=== PATIENT | female | born 1945 | race Caucasian/White ===

== ENCOUNTER 2022-01-01 14:34 | Inpatient (IN) | payer MEDICARE, OTHER ==
[~2022-01-01] VITALS: Ht 157.5 cm; Wt 80.0 kg
[~2022-01-01 14:34] MED LIST: DOCU100C40 PO; HYDR25SU33 RC; HYDR30CR79 RC; LEVO75TA57 PO; LISI-232 PO; METH500T PO; PRAV10TA38 PO
[2022-01-01 15:17] LABS: BASOPHILS % (AUTO) 0.2 % (0-1); EOSINOPHILS # (AUTO) 0.1 X10'3 (0-0.9); EOSINOPHILS % (AUTO) 1.4 % (0-6); HEMATOCRIT 39.3 % (35.0-45.0); HEMOGLOBIN 13.3 g/dl (12.0-16.0); LYMPHOCYTES # (AUTO) 2.1 X10'3 (1.1-4.8); LYMPHOCYTES % (AUTO) 29.5 % (21-51); MEAN CORPUSCULAR HEMOGLOBIN 28.9 PG (27.0-31.0); MEAN CORPUSCULAR HGB CONC 33.8 g/dL (33.0-36.5); MEAN CORPUSCULAR VOLUME 85.6 FL (78-98); MEAN PLATELET VOLUME 7.9 FL (7.4-10.4); MONOCYTES # (AUTO) 0.6 X10'3 (0-0.9); MONOCYTES % (AUTO) 8.3 % (2-12); NEUTROPHILS # (AUTO) 4.3 X10'3 (1.8-7.7); NEUTROPHILS % (AUTO) 60.6 % (42-75); PLATELET COUNT 257 X10'3 (140-440); RED BLOOD COUNT 4.59 X10'6 (4.20-5.60); RED CELL DISTRIBUTION WIDTH 13.4 % (11.5-14.5); WHITE BLOOD COUNT 7.1 X10'3 (4.5-11.0)
[2022-01-01 15:25] LABS: APTT 24 SECONDS (22-32)
[2022-01-01 15:27] LABS: ALANINE AMINOTRANSFERASE 23 U/L (12-78); ALBUMIN 3.4 G/DL (3.4-5.0); ALBUMIN/GLOBULIN RATIO 0.9 (1.1-1.5); ALKALINE PHOSPHATASE 84 IU/L (46-116); ANION GAP 8 (8-16); ASPARTATE AMINO TRANSFERASE 11 U/L (10-37); BILIRUBIN,TOTAL 0.4 MG/DL (0.1-1.0); BLOOD UREA NITROGEN 21 MG/DL (7-18); BUN/CREATININE RATIO 18.3 (6.6-38.0); CALCIUM 8.8 MG/DL (8.5-10.1); CHLORIDE 106 MMOL/L (99-107); CREATININE 1.15 MG/DL (0.40-0.90); GLUCOSE 119 MG/DL (70-104); POTASSIUM 3.7 MMOL/L (3.5-5.1); SODIUM 142 MMOL/L (135-145); TOTAL CARBON DIOXIDE 27.9 MMOL/L (24-32); TOTAL PROTEIN 7.2 G/DL (6.4-8.2); eGFR 46 ML/MIN
[2022-01-01] MEDS ORDERED: clopidogrel 75mg tablet PO ONE (16:45)
[2022-01-01] MEDS ORDERED: aspirin 325mg tablet PO ONE (16:45)
[2022-01-01] MEDS ORDERED: normal saline 1000ml 1,000 ML IV ONE (16:45)
[2022-01-01] MEDS ORDERED: iohexol 350MG/ML 100ml bottle IV ONE (16:49)
--- NOTE | 2022-01-01 17:10 | NUR ---
Pt returned from CT.
[2022-01-01] MEDS ORDERED: NO HOME MEDS (17:37)
[2022-01-01] MEDS ORDERED: potassium CL 10mEq/100ml bag 100 ML IV PRN (17:40)
[2022-01-01] MEDS ORDERED: diphenhydrAMINE 25mg capsule PO PRN (17:40)
[2022-01-01] MEDS ORDERED: magnesium Cl slow-release 64mg tablet PO PRN (17:40)
[2022-01-01] MEDS ORDERED: mag hydrox/Alum hydrox/simeth 30ml oral suspension PO PRN (17:40)
[2022-01-01] MEDS ORDERED: potassium Cl 20 mEq SR tablet PO PRN ×2 (17:40)
[2022-01-01] MEDS ORDERED: HYDROcodone/acetaminophen 5mg/325mg tablet PO PRN (17:40)
[2022-01-01] MEDS ORDERED: HYDROcodone/acetaminophen 10/325mg tab PO PRN (17:40)
[2022-01-01] MEDS ORDERED: ondansetron/PF 4mg/2ml inj IV PRN (17:40)
[2022-01-01] MEDS ORDERED: acetaminophen 325mg tablet PO PRN ×2 (17:40)
[2022-01-01] MEDS ORDERED: magnesium 4gm in 100ml NS 100 ML IV PRN (17:40)
[2022-01-01] MEDS ORDERED: morphine 2 MG/ML inj. syringe IV PRN ×2 (17:40)
[2022-01-01] MEDS ORDERED: PERFLUTREN PROTEIN-A MICROSPHR (Optison) 0.22 MG/ML 3ML VIAL IV ONE (17:40)
[2022-01-01] MEDS ORDERED: bisacodyl 10mg suppository rectal RC PRN (17:40)
[2022-01-01] MEDS ORDERED: magnesium 2GM in 50ml NS 50 ML IV PRN (17:40)
[2022-01-01] MEDS ORDERED: acetaminophen 650mg rectal suppository RC PRN (17:40)
[2022-01-01] MEDS ORDERED: magnesium hydroxide 30ml (MOM) UD suspension PO PRN (17:40)
[2022-01-01] MEDS: atorvastatin 20mg tablet PO SCH (18:02)
[2022-01-01] MEDS ORDERED: LORazepam 1 MG tablet PO PRN (18:25)
[2022-01-01] MEDS ORDERED: LORazepam 2 mg/ml vial IV PRN (18:25)
[2022-01-01] MEDS ORDERED: haloperidol 5mg tablet PO PRN (18:25)
[2022-01-01] MEDS ORDERED: thiamine 100mg/ml 2ml inj. IV ONE (18:25)
[2022-01-01] MEDS ORDERED: haloperidol lactate 5mg/ml inj IM PRN (18:25)
[2022-01-01 18:42] LABS: CLARITY,URINE CLEAR (Clear); COLOR,URINE YELLOW (Yellow); GLUCOSE, URINE NEGATIVE (Neg); KETONES,URINE NEGATIVE (Neg); LEUKOCYTE ESTERASE ,URINE NEGATIVE (Neg); NITRITES, URINE NEGATIVE (Neg); OCCULT BLOOD,URINE NEGATIVE (Neg); PROTEIN,URINE NEGATIVE (Neg); UROBILINOGEN,URINE 0.2 E.U/dL (0.2-1.0)
[2022-01-01 18:49] LABS: UA COLLECTION TYPE NON-SPECIFIED
[2022-01-01] MEDS: normal saline 1000ml 1,000 ML IV SCH (18:54)
[2022-01-01] MEDS: docusate sod 100mg capsule PO SCH (20:00)
[2022-01-01] MEDS: K and/or MAG REPLACEMENT MC SCH (20:00)
[2022-01-01] MEDS: heparin, porcine 5000 units/ml vial SQ SCH (20:36)
--- NOTE | 2022-01-01 22:25 | NUR ---
Received report from MOISES Martinez RN about patient going to room 3014B. Awaiting patient arrival.
--- NOTE | 2022-01-01 22:40 | NUR ---
The patient, ASHLEY CHRISTIANSEN, 76 y/o, F admitted by KAEL APONTE MD, was given written information regarding hospital policies, unit procedures and contact persons. See Admission information. Dx: CVA, c/o right side weakness since Wednesday, dizziness. No deficit noted. AAOX4. Hx: HTN, Hysterectomy. Denies any pain or discomfort at this time. Able to ambulate without difficulty. Call light within reach. Will continue to monitor.
[2022-01-01 23:00] VITALS: BP 181/71
[2022-01-02] VITALS (9 sets, daily range): BP systolic 120–204; BP diastolic 46–90
--- NOTE | 2022-01-02 06:33 | NUR ---
Problems reprioritized. Patient report given, questions answered & plan of care reviewed with NELA Guerrero.
[2022-01-02 07:00] LABS: BASOPHILS % (AUTO) 0.3 % (0-1); EOSINOPHILS # (AUTO) 0.2 X10'3 (0-0.9); EOSINOPHILS % (AUTO) 2.6 % (0-6); HEMATOCRIT 36.9 % (35.0-45.0); HEMOGLOBIN 12.7 g/dl (12.0-16.0); LYMPHOCYTES # (AUTO) 2.1 X10'3 (1.1-4.8); LYMPHOCYTES % (AUTO) 31.6 % (21-51); MEAN CORPUSCULAR HGB CONC 34.3 g/dL (33.0-36.5); MEAN CORPUSCULAR VOLUME 84.4 FL (78-98); MONOCYTES # (AUTO) 0.5 X10'3 (0-0.9); MONOCYTES % (AUTO) 7.5 % (2-12); NEUTROPHILS # (AUTO) 3.8 X10'3 (1.8-7.7); PLATELET COUNT 230 X10'3 (140-440); RED BLOOD COUNT 4.37 X10'6 (4.20-5.60); RED CELL DISTRIBUTION WIDTH 13.3 % (11.5-14.5); WHITE BLOOD COUNT 6.6 X10'3 (4.5-11.0)
[2022-01-02 07:17] LABS: ALANINE AMINOTRANSFERASE 21 U/L (12-78); ALBUMIN 3.2 G/DL (3.4-5.0); ALBUMIN/GLOBULIN RATIO 0.9 (1.1-1.5); ALKALINE PHOSPHATASE 75 IU/L (46-116); ANION GAP 9 (8-16); ASPARTATE AMINO TRANSFERASE 9 U/L (10-37); BILIRUBIN,TOTAL 0.6 MG/DL (0.1-1.0); BLOOD UREA NITROGEN 14 MG/DL (7-18); BUN/CREATININE RATIO 15.2 (6.6-38.0); CHLORIDE 108 MMOL/L (99-107); CHOLESTEROL 208 MG/DL (0-200); CREATININE 0.92 MG/DL (0.40-0.90); GLUCOSE 97 MG/DL (70-104); HDL CHOLESTEROL 42 MG/DL (35-60); LDL CHOLESTEROL 128 MG/DL (50-100); LIPASE 72 U/L (73-393); MAGNESIUM 2.2 MG/DL (1.5-2.4); PHOSPHORUS 3.1 MG/DL (2.3-4.5); POTASSIUM 3.7 MMOL/L (3.5-5.1); SODIUM 144 MMOL/L (135-145); TOTAL PROTEIN 6.6 G/DL (6.4-8.2); TRIGLYCERIDES 191 MG/DL (20-135); eGFR 59 ML/MIN
[2022-01-02] MEDS: thiamine 100mg tablet PO SCH (07:53)
[2022-01-02] MEDS: aspirin 325mg tablet, delayed-release (Ecotrin) PO SCH (07:53)
[2022-01-02] MEDS: atorvastatin 20mg tablet PO SCH (07:53)
[2022-01-02] MEDS: folic acid 1mg tablet PO SCH (07:54)
[2022-01-02] MEDS: docusate sod 100mg capsule PO SCH ×2 (07:54→20:12)
[2022-01-02] MEDS: clopidogrel 75mg tablet PO SCH (07:54)
[2022-01-02] MEDS: heparin, porcine 5000 units/ml vial SQ SCH ×2 (07:55→20:12)
[2022-01-02] MEDS: normal saline 1000ml 1,000 ML IV SCH ×2 (07:55→20:14)
[2022-01-02] MEDS: multivitamins, therapeutics tablet PO SCH (08:00)
[2022-01-02] MEDS: K and/or MAG REPLACEMENT MC SCH ×2 (08:14→20:00)
--- NOTE | 2022-01-02 18:20 | NUR ---
patient refused the SCD"S machine states she can walk independently.
--- NOTE | 2022-01-02 18:38 | NUR ---
Message: Room 3014/B ASHLEY CHRISTIANSEN orthostatic VS laying 120/69 sitting 180/69 standing 148/65 patient is asymptomatic Yolanda ext [phone].
--- NOTE | 2022-01-02 18:40 | NUR ---
Patient in room PCU 3014. I have received report from NELA Guerrero and had the opportunity to ask questions and assume patient care.
[2022-01-02] MEDS ORDERED: aminophylline 250mg/10ml inj. IV PRN (23:10)
[2022-01-02] MEDS ORDERED: metoprolol tartrate 1mg/ml inj IV PRN (23:10)
[2022-01-02] MEDS ORDERED: nitroGLYCERIN 0.4mg SUBLingual tab SL PRN (23:10)
[2022-01-02] MEDS ORDERED: regadenoson 0.4mg/5ml syringe IV PRN (23:10)
[2022-01-02] MEDS ORDERED: amLODIPine 2.5mg tablet PO ONE (23:40)
--- NOTE | 2022-01-02 23:44 | NUR ---
Dr Nunes was called to made aware of patient B/P , new orders received and carried out.
[2022-01-03] VITALS (15 sets, daily range): BP systolic 118–186; BP diastolic 50–82
--- NOTE | 2022-01-03 06:19 | NUR ---
Problems reprioritized. Patient report given, questions answered & plan of care reviewed with NELA Acosta.
[2022-01-03 07:13] LABS: BASOPHILS % (AUTO) 0.3 % (0-1); EOSINOPHILS # (AUTO) 0.2 X10'3 (0-0.9); EOSINOPHILS % (AUTO) 2.7 % (0-6); HEMATOCRIT 36.9 % (35.0-45.0); HEMOGLOBIN 12.7 g/dl (12.0-16.0); LYMPHOCYTES # (AUTO) 2.1 X10'3 (1.1-4.8); LYMPHOCYTES % (AUTO) 32.6 % (21-51); MEAN CORPUSCULAR HEMOGLOBIN 29.2 PG (27.0-31.0); MEAN CORPUSCULAR HGB CONC 34.5 g/dL (33.0-36.5); MEAN CORPUSCULAR VOLUME 84.9 FL (78-98); MEAN PLATELET VOLUME 8.1 FL (7.4-10.4); MONOCYTES # (AUTO) 0.4 X10'3 (0-0.9); MONOCYTES % (AUTO) 6.6 % (2-12); NEUTROPHILS # (AUTO) 3.7 X10'3 (1.8-7.7); NEUTROPHILS % (AUTO) 57.8 % (42-75); PLATELET COUNT 229 X10'3 (140-440); RED BLOOD COUNT 4.35 X10'6 (4.20-5.60); RED CELL DISTRIBUTION WIDTH 12.9 % (11.5-14.5); WHITE BLOOD COUNT 6.4 X10'3 (4.5-11.0)
[2022-01-03 07:35] LABS: ALANINE AMINOTRANSFERASE 20 U/L (12-78); ALBUMIN 3.1 G/DL (3.4-5.0); ALBUMIN/GLOBULIN RATIO 0.9 (1.1-1.5); ALKALINE PHOSPHATASE 76 IU/L (46-116); ANION GAP 10 (8-16); ASPARTATE AMINO TRANSFERASE 10 U/L (10-37); BILIRUBIN,TOTAL 0.5 MG/DL (0.1-1.0); BLOOD UREA NITROGEN 17 MG/DL (7-18); BUN/CREATININE RATIO 18.7 (6.6-38.0); CALCIUM 8.6 MG/DL (8.5-10.1); CHLORIDE 107 MMOL/L (99-107); CREATININE 0.91 MG/DL (0.40-0.90); GLUCOSE 110 MG/DL (70-104); LIPASE 71 U/L (73-393); MAGNESIUM 2.4 MG/DL (1.5-2.4); PHOSPHORUS 3.3 MG/DL (2.3-4.5); POTASSIUM 3.9 MMOL/L (3.5-5.1); SODIUM 142 MMOL/L (135-145); TOTAL CARBON DIOXIDE 25.4 MMOL/L (24-32); TOTAL PROTEIN 6.7 G/DL (6.4-8.2); eGFR 60 ML/MIN
[2022-01-03] MEDS: K and/or MAG REPLACEMENT MC SCH ×2 (08:00→20:00)
[2022-01-03] MEDS: heparin, porcine 5000 units/ml vial SQ SCH ×2 (08:00→20:42)
[2022-01-03] MEDS: normal saline 1000ml 1,000 ML IV SCH ×2 (09:40→23:09)
[2022-01-03] MEDS: aspirin 325mg tablet, delayed-release (Ecotrin) PO SCH (11:47)
[2022-01-03] MEDS: docusate sod 100mg capsule PO SCH ×2 (11:47→20:42)
[2022-01-03] MEDS: clopidogrel 75mg tablet PO SCH (11:47)
[2022-01-03] MEDS: multivitamins, therapeutics tablet PO SCH (11:47)
[2022-01-03] MEDS: atorvastatin 20mg tablet PO SCH (11:47)
[2022-01-03] MEDS: folic acid 1mg tablet PO SCH (11:47)
[2022-01-03] MEDS: thiamine 100mg tablet PO SCH (11:48)
--- NOTE | 2022-01-03 18:16 | NUR ---
Gave report to Shruthi Rosa I answered all her questions.
[2022-01-04] VITALS (10 sets, daily range): BP systolic 112–211; BP diastolic 50–95
[2022-01-04 07:33] LABS: BASOPHILS % (AUTO) 0.3 % (0-1); EOSINOPHILS # (AUTO) 0.2 X10'3 (0-0.9); EOSINOPHILS % (AUTO) 2.7 % (0-6); HEMATOCRIT 37.2 % (35.0-45.0); HEMOGLOBIN 12.6 g/dl (12.0-16.0); LYMPHOCYTES % (AUTO) 29.2 % (21-51); MEAN CORPUSCULAR HEMOGLOBIN 29.2 PG (27.0-31.0); MEAN CORPUSCULAR VOLUME 85.8 FL (78-98); MEAN PLATELET VOLUME 8.3 FL (7.4-10.4); MONOCYTES # (AUTO) 0.5 X10'3 (0-0.9); MONOCYTES % (AUTO) 7.9 % (2-12); NEUTROPHILS # (AUTO) 4.1 X10'3 (1.8-7.7); NEUTROPHILS % (AUTO) 59.9 % (42-75); PLATELET COUNT 219 X10'3 (140-440); RED BLOOD COUNT 4.33 X10'6 (4.20-5.60); RED CELL DISTRIBUTION WIDTH 13.4 % (11.5-14.5); WHITE BLOOD COUNT 6.8 X10'3 (4.5-11.0)
[2022-01-04 07:46] LABS: ALANINE AMINOTRANSFERASE 18 U/L (12-78); ALBUMIN 3.1 G/DL (3.4-5.0); ALBUMIN/GLOBULIN RATIO 0.9 (1.1-1.5); ALKALINE PHOSPHATASE 76 IU/L (46-116); ANION GAP 10 (8-16); ASPARTATE AMINO TRANSFERASE 9 U/L (10-37); BILIRUBIN,TOTAL 0.5 MG/DL (0.1-1.0); BLOOD UREA NITROGEN 17 MG/DL (7-18); BUN/CREATININE RATIO 17.9 (6.6-38.0); CALCIUM 8.2 MG/DL (8.5-10.1); CHLORIDE 109 MMOL/L (99-107); CREATININE 0.95 MG/DL (0.40-0.90); GLUCOSE 107 MG/DL (70-104); LIPASE 64 U/L (73-393); MAGNESIUM 2.5 MG/DL (1.5-2.4); PHOSPHORUS 3.2 MG/DL (2.3-4.5); POTASSIUM 3.9 MMOL/L (3.5-5.1); SODIUM 143 MMOL/L (135-145); TOTAL CARBON DIOXIDE 23.9 MMOL/L (24-32); TOTAL PROTEIN 6.5 G/DL (6.4-8.2); eGFR 57 ML/MIN
[2022-01-04] MEDS: K and/or MAG REPLACEMENT MC SCH ×2 (08:00→20:00)
[2022-01-04] MEDS: clopidogrel 75mg tablet PO SCH (08:14)
[2022-01-04] MEDS: atorvastatin 20mg tablet PO SCH (08:14)
[2022-01-04] MEDS: folic acid 1mg tablet PO SCH (08:14)
[2022-01-04] MEDS: aspirin 325mg tablet, delayed-release (Ecotrin) PO SCH (08:14)
[2022-01-04] MEDS: docusate sod 100mg capsule PO SCH ×2 (08:14→20:25)
[2022-01-04] MEDS: thiamine 100mg tablet PO SCH (08:18)
[2022-01-04] MEDS: multivitamins, therapeutics tablet PO SCH (08:18)
[2022-01-04] MEDS: heparin, porcine 5000 units/ml vial SQ SCH ×2 (08:19→20:25)
[2022-01-04] MEDS: normal saline 1000ml 1,000 ML IV SCH (12:20)
--- NOTE | 2022-01-04 18:29 | NUR ---
Problems reprioritized. Patient report given, questions answered & plan of care reviewed with Shruthi RONDON.
[2022-01-05] VITALS (43 sets, daily range): BP systolic 128–197; BP diastolic 46–86
[2022-01-05] MEDS: normal saline 1000ml 1,000 ML IV SCH ×2 (01:59→17:55)
--- NOTE | 2022-01-05 02:24 | NUR ---
Dr Fisher called to notify about pt blood pressure. 197/77 hr 81. No new order.
[2022-01-05] MEDS: hydrALAZINE 20mg/ml inj. IV PRN ×2 (03:23→11:42)
[2022-01-05 06:50] LABS: BASOPHILS % (AUTO) 0.3 % (0-1); EOSINOPHILS # (AUTO) 0.2 X10'3 (0-0.9); EOSINOPHILS % (AUTO) 2.6 % (0-6); HEMATOCRIT 37.4 % (35.0-45.0); HEMOGLOBIN 12.9 g/dl (12.0-16.0); LYMPHOCYTES % (AUTO) 26.2 % (21-51); MEAN CORPUSCULAR HEMOGLOBIN 29.2 PG (27.0-31.0); MEAN CORPUSCULAR HGB CONC 34.4 g/dL (33.0-36.5); MEAN PLATELET VOLUME 8.2 FL (7.4-10.4); MONOCYTES # (AUTO) 0.5 X10'3 (0-0.9); MONOCYTES % (AUTO) 6.5 % (2-12); NEUTROPHILS % (AUTO) 64.4 % (42-75); PLATELET COUNT 229 X10'3 (140-440); RED BLOOD COUNT 4.41 X10'6 (4.20-5.60); RED CELL DISTRIBUTION WIDTH 13.2 % (11.5-14.5); WHITE BLOOD COUNT 7.8 X10'3 (4.5-11.0)
[2022-01-05] MEDS: heparin, porcine 5000 units/ml vial SQ SCH ×2 (06:59→20:28)
[2022-01-05] MEDS: multivitamins, therapeutics tablet PO SCH (07:00)
[2022-01-05] MEDS: aspirin 325mg tablet, delayed-release (Ecotrin) PO SCH ×2 (07:00→08:02)
[2022-01-05] MEDS: clopidogrel 75mg tablet PO SCH ×2 (07:00→08:02)
[2022-01-05] MEDS: atorvastatin 20mg tablet PO SCH (07:00)
[2022-01-05] MEDS: docusate sod 100mg capsule PO SCH ×2 (07:00→20:26)
[2022-01-05] MEDS: thiamine 100mg tablet PO SCH (07:00)
[2022-01-05] MEDS: folic acid 1mg tablet PO SCH (07:00)
[2022-01-05] MEDS: K and/or MAG REPLACEMENT MC SCH ×2 (07:01→20:00)
[2022-01-05 07:03] LABS: ALANINE AMINOTRANSFERASE 23 U/L (12-78); ALBUMIN 3.3 G/DL (3.4-5.0); ALBUMIN/GLOBULIN RATIO 0.9 (1.1-1.5); ALKALINE PHOSPHATASE 81 IU/L (46-116); ANION GAP 8 (8-16); ASPARTATE AMINO TRANSFERASE 12 U/L (10-37); BILIRUBIN,TOTAL 0.5 MG/DL (0.1-1.0); BLOOD UREA NITROGEN 13 MG/DL (7-18); BUN/CREATININE RATIO 15.7 (6.6-38.0); CALCIUM 8.4 MG/DL (8.5-10.1); CHLORIDE 109 MMOL/L (99-107); CREATININE 0.83 MG/DL (0.40-0.90); GLUCOSE 108 MG/DL (70-104); LIPASE 72 U/L (73-393); MAGNESIUM 2.7 MG/DL (1.5-2.4); PHOSPHORUS 2.9 MG/DL (2.3-4.5); SODIUM 142 MMOL/L (135-145); TOTAL CARBON DIOXIDE 24.7 MMOL/L (24-32); TOTAL PROTEIN 6.9 G/DL (6.4-8.2); eGFR 67 ML/MIN
--- NOTE | 2022-01-05 07:47 | NUR ---
Confirmed with Dr. Lalo madrid to give aspirin and plavix
[2022-01-05] MEDS ORDERED: phenylephrine inj 50 MG in normal saline 250ml IV soln 250 ML IV SCH (11:55)
[2022-01-05] MEDS ORDERED: nitroPRUSSIDE sod inj. 50 MG in dextrose 5%-water 248 ML IV SCH (11:55)
[2022-01-05] MEDS ORDERED: heparin 10,000 units/1 ML INJ ONE (12:02)
[2022-01-05] MEDS: nitroPRUSSIDE 0.2mg/mL in NS 100 ML IV SCH (12:31)
--- NOTE | 2022-01-05 12:33 | NUR ---
Gave report to control and recovery special tactics Jane
[2022-01-05] MEDS ORDERED: FENTANYL CITRATE/PF 50 MCG/1 ML VIAL ONE (13:04)
[2022-01-05] MEDS ORDERED: midazolam 1 mg/ML 2ml injection ONE (13:04)
[2022-01-05] MEDS ORDERED: morphine 4 MG/ML inj SYRINge IV PRN (13:05)
[2022-01-05] MEDS ORDERED: ondansetron/PF 4mg/2ml inj IV PRN (13:05)
[2022-01-05] MEDS ORDERED: morphine 2 MG/ML inj. syringe IV PRN (13:05)
[2022-01-05] MEDS ORDERED: ringers solution, lacted 1,000 ML IV SCH (13:05)
[2022-01-05] MEDS ORDERED: proCHLORperazine 10 MG/2 ml inj IV PRN (13:05)
[2022-01-05] MEDS ORDERED: meperidine/PF 25mg/ml syringe IV PRN ×3 (13:05)
[2022-01-05] MEDS ORDERED: propofol inj 20 ML IV ONE (13:22)
[2022-01-05] MEDS ORDERED: LIDOcaine 2% (20mg/ml) 5ml vial ONE (13:22)
[2022-01-05] MEDS ORDERED: rocuronium 10mg/ml inj IV ONE (13:23)
[2022-01-05] MEDS ORDERED: ondansetron/PF 4mg/2ml inj ONE (13:35)
[2022-01-05] MEDS ORDERED: ceFAZolin 1000mg inj ONE ×2 (13:41)
[2022-01-05] MEDS ORDERED: morphine 4 MG/ML inj SYRINge ONE (13:45)
--- NOTE | 2022-01-05 15:00 | NUR ---
Problems reprioritized. Patient report given, questions answered & plan of care reviewed with Mary RONDON.
[2022-01-05] MEDS ORDERED: protamine sulfate 10mg/ml inj. ONE (15:02)
[2022-01-05] MEDS ORDERED: sugammadex 200mg/2ml injection IV ONE (15:23)
[2022-01-05 15:29] LABS: BASOPHILS % (AUTO) 0.3 % (0-1); EOSINOPHILS # (AUTO) 0.2 X10'3 (0-0.9); EOSINOPHILS % (AUTO) 1.4 % (0-6); HEMATOCRIT 37.3 % (35.0-45.0); HEMOGLOBIN 12.3 g/dl (12.0-16.0); LYMPHOCYTES # (AUTO) 2.6 X10'3 (1.1-4.8); LYMPHOCYTES % (AUTO) 19.8 % (21-51); MEAN CORPUSCULAR HEMOGLOBIN 28.5 PG (27.0-31.0); MEAN CORPUSCULAR HGB CONC 33.1 g/dL (33.0-36.5); MEAN CORPUSCULAR VOLUME 86.1 FL (78-98); MEAN PLATELET VOLUME 8.2 FL (7.4-10.4); MONOCYTES # (AUTO) 0.6 X10'3 (0-0.9); MONOCYTES % (AUTO) 4.3 % (2-12); NEUTROPHILS # (AUTO) 9.7 X10'3 (1.8-7.7); NEUTROPHILS % (AUTO) 74.2 % (42-75); PLATELET COUNT 278 X10'3 (140-440); RED BLOOD COUNT 4.33 X10'6 (4.20-5.60); RED CELL DISTRIBUTION WIDTH 13.4 % (11.5-14.5)
--- NOTE | 2022-01-05 15:39 | NUR ---
Received from OR via BED, accompanied by Anesthesiologist DR LIMON and report given by Anesthesiologist. PT DROWSY, IS ABLE TO PERFORM NEURO CHECKS, FACIAL OPENING WIDE AND SQUINTING EYES SYMMETRICAL, SMILE, FROWN. 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 SHE HAD A CVA IN PAST W/RIGHT SIDED WEAKNESS. LEFT NECK W/HEMANT TO BULB SX W/SANGUINOUS DRAINAGE, INCISION W/CLEAR DRSG COVERING, NO S/S OF HEMATOMA OR OOZING. PT ON SMALL DOSE OF NIPRIDE TO MAINTAIN BP 140' TO 150'S. Addendum: 01/05/22 at 1658 by Mary Weston RN Amended: Links added.
[2022-01-05 15:59] LABS: APTT > 139 SECONDS (22-32)
[2022-01-05] MEDS ORDERED: ceFAZolin/D5W- 1GM premix 50 ML IV SCH (16:00)
--- NOTE | 2022-01-05 17:29 | NUR ---
Report called to receiving nurse. Transferred via BED ON AND , NO Belongings. PT REMAINS W/O CHANGE IN STATUS, DENIES PAIN. RECEIVING RN AT BEDSIDE TO RECEIVE PT. Special Issues communicated to receiving nurse.YES. Addendum: 01/05/22 at 1748 by Mary Weston RN Amended: Links added.
[2022-01-05] MEDS: ceFAZolin/D5W- 1GM premix 50 ML IV SCH (20:28)
[2022-01-06] VITALS (36 sets, daily range): BP systolic 112–168; BP diastolic 43–71
[2022-01-06 02:01] LABS: BASOPHILS % (AUTO) 0.1 % (0-1); EOSINOPHILS % (AUTO) 0 % (0-6); HEMATOCRIT 32.6 % (35.0-45.0); HEMOGLOBIN 11.1 g/dl (12.0-16.0); LYMPHOCYTES % (AUTO) 9.9 % (21-51); MEAN CORPUSCULAR HEMOGLOBIN 29.1 PG (27.0-31.0); MEAN CORPUSCULAR VOLUME 85.8 FL (78-98); MEAN PLATELET VOLUME 8.2 FL (7.4-10.4); MONOCYTES # (AUTO) 0.3 X10'3 (0-0.9); MONOCYTES % (AUTO) 3.2 % (2-12); NEUTROPHILS # (AUTO) 8.6 X10'3 (1.8-7.7); NEUTROPHILS % (AUTO) 86.8 % (42-75); PLATELET COUNT 215 X10'3 (140-440); RED CELL DISTRIBUTION WIDTH 13.2 % (11.5-14.5); WHITE BLOOD COUNT 9.9 X10'3 (4.5-11.0)
[2022-01-06 02:22] LABS: ALANINE AMINOTRANSFERASE 21 U/L (12-78); ALBUMIN 2.8 G/DL (3.4-5.0); ALBUMIN/GLOBULIN RATIO 0.9 (1.1-1.5); ALKALINE PHOSPHATASE 69 IU/L (46-116); ANION GAP 10 (8-16); ASPARTATE AMINO TRANSFERASE 10 U/L (10-37); BILIRUBIN,TOTAL 0.3 MG/DL (0.1-1.0); BLOOD UREA NITROGEN 17 MG/DL (7-18); BUN/CREATININE RATIO 17.9 (6.6-38.0); CALCIUM 7.6 MG/DL (8.5-10.1); CHLORIDE 108 MMOL/L (99-107); CREATININE 0.95 MG/DL (0.40-0.90); GLUCOSE 168 MG/DL (70-104); LIPASE < 50 U/L (73-393); MAGNESIUM 2.4 MG/DL (1.5-2.4); PHOSPHORUS 3.4 MG/DL (2.3-4.5); POTASSIUM 4.4 MMOL/L (3.5-5.1); SODIUM 139 MMOL/L (135-145); TOTAL CARBON DIOXIDE 21.4 MMOL/L (24-32); eGFR 57 ML/MIN
[2022-01-06] MEDS: ceFAZolin/D5W- 1GM premix 50 ML IV SCH ×2 (04:01→13:44)
[2022-01-06] MEDS: normal saline 1000ml 1,000 ML IV SCH (04:03)
[2022-01-06] MEDS: nitroPRUSSIDE 0.2mg/mL in NS 100 ML IV SCH ×2 (04:58→12:31)
--- NOTE | 2022-01-06 06:20 | NUR ---
Problems reprioritized. Patient report given, questions answered & plan of care reviewed with Manan RONDON.
[2022-01-06] MEDS: K and/or MAG REPLACEMENT MC SCH ×2 (08:00→19:24)
[2022-01-06] MEDS: aspirin 325mg tablet, delayed-release (Ecotrin) PO SCH (08:21)
[2022-01-06] MEDS: docusate sod 100mg capsule PO SCH ×2 (08:22→19:57)
[2022-01-06] MEDS: heparin, porcine 5000 units/ml vial SQ SCH ×2 (08:22→19:59)
[2022-01-06] MEDS: folic acid 1mg tablet PO SCH (08:22)
[2022-01-06] MEDS: atorvastatin 20mg tablet PO SCH (08:22)
[2022-01-06] MEDS: clopidogrel 75mg tablet PO SCH (08:23)
[2022-01-06] MEDS: thiamine 100mg tablet PO SCH (08:23)
[2022-01-06] MEDS: multivitamins, therapeutics tablet PO SCH (08:23)
[2022-01-06] MEDS ORDERED: furosemide 20 MG/2 ML vial IV ONE (11:05)
--- NOTE | 2022-01-06 12:03 | NUR ---
Initial: Pt admit for CVA. Per MD note pt found to have severe left ICA stenosis, now s/p left carotid endarterectomy. Pt s/p BSS 01/[address] recs regular consistency of food and liquids as pt swallowing well with no s/s aspiration. Pt currently eating well on a clear liquid diet post-op however surgeon okayed advancing diet this morning per RN. Prior to OR pt was on a heart healthy diet and eating well with mostly 75-100% PO intake meeting estimated nutrient needs. Per H&P pt reportedly drinks vodka daily and is currently on EtOH w/d protocol receiving routine Thiamine, Folic acid, and MVI. LBM 01/04, receiving routine and PRN bowel care. No nutrition intervention implemented at this time. Will continue to follow. Recommendations: 1) Advance to heart healthy diet 2) Continue routine Thiamine, Folic acid, and MVI given EtOH hx 3) Routine bowel care 4) Scaled weight this admit; weekly scaled weighs thereafter Addendum: 01/06/22 at [address] Amended: Links added.
[2022-01-06] MEDS: nitroGLYCERIN 0.2mg/hour patch TD SCH (13:46)
[2022-01-06] MEDS: metoprolol tartrate 25mg tablet PO SCH (19:58)
[2022-01-06] MEDS: hydrALAZINE 20mg/ml inj. IV PRN (19:59)
[2022-01-07 02:00] VITALS: BP 155/61
[2022-01-07] MEDS: K and/or MAG REPLACEMENT MC SCH (06:52)
[2022-01-07] MEDS: nitroGLYCERIN 0.2mg/hour patch TD SCH (08:00)
[2022-01-07] MEDS: atorvastatin 20mg tablet PO SCH (08:38)
[2022-01-07] MEDS: clopidogrel 75mg tablet PO SCH (08:38)
[2022-01-07] MEDS: multivitamins, therapeutics tablet PO SCH (08:38)
[2022-01-07] MEDS: thiamine 100mg tablet PO SCH (08:38)
[2022-01-07] MEDS: folic acid 1mg tablet PO SCH (08:38)
[2022-01-07] MEDS: aspirin 325mg tablet, delayed-release (Ecotrin) PO SCH (08:38)
[2022-01-07 08:40] VITALS: BP_SYST 146
[2022-01-07] MEDS: heparin, porcine 5000 units/ml vial SQ SCH (08:40)
[2022-01-07] MEDS: docusate sod 100mg capsule PO SCH (08:40)
[2022-01-07] MEDS: metoprolol tartrate 25mg tablet PO SCH (08:40)
[2022-01-07] MEDS ORDERED: LOP25T PO (09:23)
[2022-01-07] MEDS ORDERED: ASPI-1071 PO (09:23)
[2022-01-07] MEDS ORDERED: FOLI0.4T6 PO (09:23)
[2022-01-07] MEDS ORDERED: CLOP75TA34 PO (09:23)
[2022-01-07] MEDS ORDERED: THIA50TA10 PO (09:23)
[2022-01-07] MEDS ORDERED: ATOR20TA66 PO (09:23)
[2022-01-07] MEDS ORDERED: MULT-25 PO (09:23)
--- NOTE | 2022-01-07 13:44 | NUR ---
per patient last BM 01/05 Addendum: 01/07/22 at 1348 by Kala HAWLEY Amended: Links added.
== END 2022-01-07 14:45 | disposition home or self-care (01) | DRG 38 ==
LOC: ER 14:35 → ED HOLD 17:43 → PCU 3S 22:50 → CICU 2S 01-05 16:12 → MED 3N 01-06 17:13
PROVIDERS: ADMIT Family Medicine; ATTEND Family Medicine
PROC: B3251ZZ Computerized Tomography (CT Scan) of Bilateral Common Carotid Arteries using Low Osmolar Contrast (ICD-10-PCS; 2022-01-01)
PROC: B32G1ZZ Computerized Tomography (CT Scan) of Bilateral Vertebral Arteries using Low Osmolar Contrast (ICD-10-PCS; 2022-01-01)
PROC: B32R1ZZ Computerized Tomography (CT Scan) of Intracranial Arteries using Low Osmolar Contrast (ICD-10-PCS; 2022-01-01)
PROC: B3281ZZ Computerized Tomography (CT Scan) of Bilateral Internal Carotid Arteries using Low Osmolar Contrast (ICD-10-PCS; 2022-01-01)
PROC: 4A02XM4 Measurement of Cardiac Total Activity, External Approach (ICD-10-PCS; 2022-01-03)
PROC: 3E033HZ Introduction of Radioactive Substance into Peripheral Vein, Percutaneous Approach (ICD-10-PCS; 2022-01-03)
PROC: 03UL0KZ Supplement Left Internal Carotid Artery with Nonautologous Tissue Substitute, Open Approach (ICD-10-PCS; 2022-01-05)
PROC: 4A10X4Z Monitoring of Central Nervous Electrical Activity, External Approach (ICD-10-PCS; 2022-01-05)
PROC: 03CL0ZZ Extirpation of Matter from Left Internal Carotid Artery, Open Approach (ICD-10-PCS; principal; 2022-01-05 12:57)
DX: I63.232 Cerebral infarction due to unspecified occlusion or stenosis of left carotid arteries (principal); N17.9 Acute kidney failure, unspecified; Z66 Do not resuscitate; Z20.822 Contact with and (suspected) exposure to COVID-19; E66.9 Obesity, unspecified; Z82.3 Family history of stroke; Z83.3 Family history of diabetes mellitus; Z90.710 Acquired absence of both cervix and uterus; Z68.32 Body mass index [BMI] 32.0-32.9, adult; Z72.89 Other problems related to lifestyle; Z71.41 Alcohol abuse counseling and surveillance of alcoholic
CPT/HCPCS: 36415; 70450; 70496; 70498; 70551; 71045; 78452; 80053; 80061; 81003; 82948; 83036; 83690; 83735; 84100; 84484; 85025; 85610; 85651; 85730; 87081; 87635; 88300; 88305; 92508; 92616; 93005; 93017; 93306; 93880; 95813; 95816; 97161; 97530; 99285; A4618; A6258; A7000; A9500; C1758; C1768; C1887; G0378; J0360; J0690; J1644; J1940; J2250; J2270; J2405; J2704; J2720; J2785; J3010; J3411; J3490; J7030; J7040; J7120; Q9967